=== PATIENT | female | born 1940 | race Caucasian/White ===

== ENCOUNTER 2017-07-20 16:12 | Inpatient (IN) | payer OTHER ==
[~2017-07-20] VITALS: Ht 157.5 cm; Wt 46.5 kg
--- NOTE | ~2017-07-20 | EKG ---
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 : 1940 Requested By: Julio César Fitzgerald Order Number: [id number] MD: Jalen Benton Measurements Intervals [place] Rate: 82 P: 70 UT: 160 QRS: 61 QRSD: 85 T: 50 QT: 360 QTc: 421 Interpretive Statements Sinus rhythm Nonspecific ST segment abnormality Compared to ECG 07/30/2012 16:33:06 No significant change was found Electronically Signed On 07-21-2017 7:46:20 CDT by Jalen Benton [email or web address] <ELECTRONICALLY SIGNED> By: Jalen Benton MD, [facility] 07/21/17 0746 D: 03/1616 16 Jalen Benton MD, FACC /EPI
--- NOTE | ~2017-07-20 | HC ---
[facility] [place] [address] CONSULTATION Name: BETO BLACK Room #: 202-P [facility] IN M.R.#: [id number] Admission: 07/20/17 Attend Phys: Danilo Ramos MD Discharge: Date of : 42 Report #: [id number] THIS REPORT FOR: //name// CC: Luis M Ramos DATE OF SERVICE: 07/21/2017 HISTORY OF PRESENT ILLNESS: The patient is a 76-year-old white female who I was asked to see in the hospital today after she complained of chest pain. No old records are available. 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 She actually jeanette her own troponin that was elevated. She was admitted to [facility] and seen by Dr. Harrington. Dr. Arriaza then placed a single 2.5 x 20 mm long drug-eluting stent in her LAD. She has done well since that time. She states she actually had a repeat heart catheterization about 5 years ago here at [facility] and told there was no significant restenosis of the stent. She has done well since that time and does work out at the gym on an occasional basis. She notes for the past 2 days, she has had soreness over the left side of her chest. It is not related to activity or meals. It would tend to come and go. There was some radiation to her left shoulder and arm. She denied any shortness of breath, diaphoresis or nausea. She denied any trauma to the chest. The pain was not related to food. She has had no fever, cough or bleeding. She denied any rash. Yesterday, it persisted most of the day. She finally came to the emergency room last night and was admitted. I was asked to see her for further evaluation and treatment. She denied any leg pain. PAST MEDICAL HISTORY: Significant for previous thyroidectomy, cataract extraction, hypertension, and hyperlipidemia. MEDICATIONS: Consist of benazepril, carvedilol, atorvastatin, Synthroid, Prilosec, and aspirin. ALLERGIES: She has no known drug allergies. FAMILY HISTORY: Her father had heart disease. SOCIAL HISTORY: She is . She and her live in [place], [place]. 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 She quit smoking 10 years ago, used to smoke a pack of cigarettes a day. She does have one drink of alcohol a day. REVIEW OF SYSTEMS: She has had no history of a stroke or asthma. She has had previous EGD showing evidence of GERD. No history of liver disease. She has had a kidney stone in the past. No cancer. No psychiatric illness. No chronic [facility] [address] [place] [address] CONSULTATION Name: BETO BLACK Room #: 202-P [facility] IN M.R.#: [id number] Admission: 07/20/17 Attend Phys: Danilo Ramos MD Discharge: Date of : 42 Report #: [id number] skin condition. PHYSICAL EXAMINATION: GENERAL: Revealed an elderly female, lying in bed. She appeared in no distress. VITAL SIGNS: Show blood pressure 140/80, pulse 70. She is afebrile. HEENT: She was anicteric, conjunctivae pink. Mucous membranes moist. NECK: Veins do not appear distended. No carotid bruits. Neck was supple. CHEST: Clear to auscultation. HEART: Regular rate and rhythm. No significant murmur. ABDOMEN: Soft, nontender. EXTREMITIES: Had no edema. Posterior tibial pulses 2+ bilaterally. SKIN: Warm and dry. NEUROLOGIC: Nonfocal. LYMPH: No adenopathy. MUSCULOSKELETAL: No joint effusion. Her ECG on admission yesterday showed a sinus rhythm. There was no ST or T-wave change noted. Her workup in the emergency room last night, she had a portable chest x-ray that showed normal heart size and clear lung menjivar. Her lab work last night, she had sodium 138, potassium is 4.4, BUN is 27, creatinine is 1.4, her glucose is 104. Her troponins all 0.04. Cholesterol 224, triglyceride 115, HDL of 141, LDL 37. White blood cell count 6.4, hemoglobin 11.9. TSH was 9. IMPRESSION AND RECOMMENDATIONS: 1. Chest pain. Atypical for angina. However, in light of her history of coronary artery disease, recommend a nuclear stress test since the patient is on a beta flaca. 2. Hypertension. The patient has been on an RICARDO and a beta flaca. 3. Hyperlipidemia. The patient is on a statin drug. 4. Previous thyroidectomy. I would increase the dose of her Synthroid to maintain a normal TSH. 5. History of gastroesophageal reflux disease. 6. Chronic kidney disease. <ELECTRONICALLY SIGNED> By: Krzysztof Easley MD, FACC 07/21/17 1734 0815 [address] Krzysztof Easley MD, FACC /nt
--- NOTE | ~2017-07-20 | 2DMMODE ---
[facility] [address] [place] [address] 2 D/M-MODE ECHOCARDIOGRAM Name: SOFIABETOALICE ALCARAZ Room #: 202-P ADM IN .R.#: [id number] Admission: 07/20/17 Attend Phys: Danilo Ramos MD Discharge: Date of : 42 Date of Service: 07/21/17 [facility] Report #: [id number] THIS REPORT FOR: //name// APPROVED REPORT Study performed: 07/21/2017 09:31:22 EXAM: Comprehensive 2D, Doppler, and color-flow Echocardiogram Patient Location: Bedside Room #: 202 Status: routine BSA: 1.44 HR: 60 bpm BP: 91/57 mmHg Rhythm: NSR Other Information Study Quality: Good/low parasternal window. Indications Chest Pain Hx: CAD, stent 2D Dimensions RVDd: 28.74 mm LVEF(%): 62.91 (>50%) IVSd: 8.95 (7-11mm) LVOT Diam: 19.67 (18-24mm) LVDd: 43.85 mm PWd: 7.43 (7-11mm) LVDs: 29.02 (25-40mm) Aortic Root: 29.78 mm Pineda's LVEF: 62.91 % Volumes Left Atrial Volume (Systole) Single Plane 4CH: 35.57 mL Single Plane 2CH: 45.40 mL LA ESV Index: 30.00 mL/m2 Aortic Valve AoV Peak Chato.: 1.55 m/s AO Peak Gr.: 9.59 mmHg LVOT Max P.19 mmHg LVOT Max V: 1.24 m/s DANAE Vmax: 2.44 cm2 Mitral Valve E/A Ratio: 0.[address] [facility] [place] [address] 2 D/M-MODE ECHOCARDIOGRAM Name: BETO BLACK Room #: 202-P [facility] IN .R.#: [id number] Admission: 07/20/17 Attend Phys: Danilo Ramos MD Discharge: Date of : 42 Date of Service: 07/21/17 [facility] Report #: [id number] MV Decel. Time: 168.56 ms MV E Max Chato.: 0.77 m/s MV A Chato.: 0.97 m/s MV PHT: 48.88 ms IVRT: 115.34 ms Pulmonary Valve PV Peak Chato.: 0.80 m/s PV Peak Gr.: 2.54 mmHg Pulmonary Vein P Vein S: 0.37 m/s P Vein A: 0.29 m/s P Vein D: 0.32 m/s P Vein A Dur.: 106.1 msec P Vein S/D Ratio: 1.16 Tricuspid Valve TR Peak Chato.: 2.37 m/s RAP Estimate: 5.00 mmHg TR Peak Gr.: 22.40 mmHg PA Pressure: 27.00 mmHg Left Ventricle The left ventricle is normal size. There is normal LV segmental wall motion. There is normal left ventricular wall thickness. Left ventricular systolic function is normal. LVEF is 55-60%. Mild diastolic dysfunction is present (impaired relaxation pattern). Right Ventricle The right ventricle is normal size. The right ventricular systolic function is normal. Atria Left atrium is mildly dilated. The right atrium size is normal. Aortic Valve The Aortic valve is mildly sclerotic. No aortic regurgitation is present. There is no aortic valvular stenosis. Mitral Valve The mitral valve is normal in structure. Trace mitral regurgitation. Tricuspid Valve The tricuspid valve is normal in structure. Mild tricuspid regurgitation. Estimated PAP is 25-30mmHg. [address] [address] 2 D/M-MODE ECHOCARDIOGRAM Name: BETO BLACK Room #: 202-P [facility] IN .R.#: [id number] Admission: 07/20/17 Attend Phys: Danilo Ramos MD Discharge: Date of : 42 Date of Service: 07/21/17 [facility] Report #: [id number] Pulmonic Valve Pulmonic valve is not well visualized. There is no pulmonic valvular regurgitation noted. Great Vessels The aortic root is normal in size. Ascending aorta is not well visualized. IVC is normal in size and collapses >50% with inspiration. Pericardium There is no pericardial effusion. <Conclusion> Left atrium is mildly dilated. LVEF is 55-60%. <ELECTRONICALLY SIGNED> By: Krzysztof Easley MD, FACC 07/21/17 1038 1038 1038 Krzysztof Easley MD, FACC /INF
[~2017-07-20 16:12] MED LIST: ASPIRIN EC81 M1 PO; BENAZEPRIL HCL20 MG PO; CLONIDINE0.1; CRESTOR PO; CRESTOR20 MG PO; HYDROCHLOROTHIA25 M1; LEVOTHYROXINE0.05 MG PO; LOPRESSOR25 PO; METOPROLOL SUCC25 M1 PO; NITROGLYCERIN0.4 MG SUBLING; PRILOSEC 20 MG20 MG PO; PRILOSEC40 MG PO
[2017-07-20 16:16] VITALS: BP 164/90
[2017-07-20 16:34] LABS: ABSOLUTE NEUTROPHILS 5.2 thou/uL (1.4-8.2); BASOPHILS 0.9 % (0.0-2.0); EOSINOPHILS 1.1 % (0.0-3.0); HEMATOCRIT 38.4 % (37.0-47.0); HEMOGLOBIN 13.2 gm/dL (12.0-15.0); LYMPHOCYTES 24.8 % (24.0-44.0); MCH 33.5 pg (26.0-34.0); MCHC 34.5 g/dL (28.0-37.0); MCV 97.3 fL (80.0-100.0); PLATELET COUNT 259 thou/uL (150-400); POLYS 64.2 % (36.0-66.0); RBC 3.94 mil/uL (4.20-5.00); RDW 13.7 % (10.5-14.5); WBC 8.1 thou/uL (4.0-11.0)
[2017-07-20 16:41] LABS: ANION GAP 9 mmol/L (7-16); BUN 26 mg/dL (7-18); CALCIUM 9.6 mg/dL (8.5-10.1); CHLORIDE 100 mmol/L (98-107); CO2 24 mmol/L (21-32); GLUCOSE 147 mg/dL (74-106); SODIUM 133 mmol/L (136-145)
[2017-07-20 16:52] LABS: TROPONIN-I < 0.04 ng/mL (<0.06)
[2017-07-20] MEDS ORDERED: SYNTHROID75 MCG PO (16:54)
[2017-07-20] MEDS ORDERED: CARVEDILOL12.5 MG PO (16:54)
[2017-07-20] MEDS ORDERED: CRESTOR20 MG PO (16:54)
[2017-07-20] MEDS ORDERED: BENAZEPRIL HCL20 MG PO (16:54)
[2017-07-20] MEDS ORDERED: OMEPRAZOLE 20 M20 M1 PO (16:55)
[2017-07-20 17:28] VITALS: BP 148/82
[2017-07-20 18:30] VITALS: BP 130/85
[2017-07-20 18:40] VITALS: BP 179/100
[2017-07-20 18:57] VITALS: BP 179/100
[2017-07-21] VITALS: BP 106/65
[2017-07-21 04:39] VITALS: BP 93/54
[2017-07-21 05:32] LABS: ANION GAP 11 mmol/L (7-16); BUN 27 mg/dL (7-18); CALCIUM 9.8 mg/dL (8.5-10.1); CHLORIDE 103 mmol/L (98-107); CHOLESTEROL 224 mg/dL (<200); CO2 24 mmol/L (21-32); CREATININE 1.4 mg/dL (0.6-1.0); GLUCOSE 104 mg/dL (74-106); LDL CHOLESTEROL 37 mg/dL (<100); POTASSIUM 4.4 mmol/L (3.5-5.1); SODIUM 138 mmol/L (136-145); TC:HDL 1.4 Ratio (Not establshd); TRIGLYCERIDE 115 mg/dL (<150); VLDL 23 mg/dL (<40)
[2017-07-21 05:44] LABS: SERUM ASSESSMENT Clear
[2017-07-21 05:47] LABS: HEMOGLOBIN 11.9 gm/dL (12.0-15.0); MCH 32.5 pg (26.0-34.0); MCHC 33.2 g/dL (28.0-37.0); MCV 97.7 fL (80.0-100.0); RBC 3.68 mil/uL (4.20-5.00); RDW 14.2 % (10.5-14.5); WBC 6.4 thou/uL (4.0-11.0)
[2017-07-21 07:11] VITALS: BP 91/57
[2017-07-21 08:41] LABS: HDL CHOLESTEROL 161 mg/dL (>40)
[2017-07-21 15:42] VITALS: BP 109/74
[2017-07-21] MEDS ORDERED: PANTOPRAZOLE SO40 M1 PO (17:42)
[2017-07-21 17:46] VITALS: BP 109/74
== END 2017-07-21 17:58 | disposition home or self-care (01) | DRG 313 ==
LOC: ER 16:12 → 2N 17:19 → EROBS 17:19 → 2N 18:30
PROVIDERS: Hospitalist; Physician Assistant
PROC: B24BZZ4 Ultrasonography of Heart with Aorta, Transesophageal (ICD-10-PCS; principal; 2017-07-21)
DX: R07.89 Other chest pain (principal); E78.5 Hyperlipidemia, unspecified; E89.0 Postprocedural hypothyroidism; I25.10 Atherosclerotic heart disease of native coronary artery without angina pectoris; K21.9 Gastro-esophageal reflux disease without esophagitis; I12.9 Hypertensive chronic kidney disease with stage 1 through stage 4 chronic kidney disease, or unspecified chronic kidney disease; N18.9 Chronic kidney disease, unspecified; I25.2 Old myocardial infarction; Z95.5 Presence of coronary angioplasty implant and graft; Z87.891 Personal history of nicotine dependence; Z79.82 Long term (current) use of aspirin; Z79.899 Other long term (current) drug therapy; Z82.49 Family history of ischemic heart disease and other diseases of the circulatory system
CPT/HCPCS: 10194

== ENCOUNTER 2017-10-28 13:26 | Emergency (ER) | payer OTHER ==
[~2017-10-28] VITALS: Ht 157.5 cm; Wt 43.1 kg
--- NOTE | ~2017-10-28 | EKG ---
[place] [address] [facility] [address] [place] [address] ELECTROCARDIOGRAM REPORT Name: SOFIABETO ALCARAZ 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
[~2017-10-28 13:26] MED LIST changes: +CARVEDILOL12.5 MG PO; +OMEPRAZOLE 20 M20 M1 PO; +PANTOPRAZOLE SO40 M1 PO; +SYNTHROID75 MCG PO
[2017-10-28 14:44] LABS: ABSOLUTE NEUTROPHILS 8.9 thou/uL (1.4-8.2); BASOPHILS 0.3 % (0.0-2.0); EOSINOPHILS 0.1 % (0.0-3.0); HEMATOCRIT 33.8 % (37.0-47.0); HEMOGLOBIN 11.6 gm/dL (12.0-15.0); LYMPHOCYTES 6.6 % (24.0-44.0); MCH 32.6 pg (26.0-34.0); MCHC 34.4 g/dL (28.0-37.0); MCV 94.8 fL (80.0-100.0); MONOCYTES 1.2 % (1.0-8.0); PLATELET COUNT 222 thou/uL (150-400); POLYS 91.8 % (36.0-66.0); RBC 3.57 mil/uL (4.20-5.00); RDW 13.2 % (10.5-14.5); WBC 9.7 thou/uL (4.0-11.0)
[2017-10-28 14:53] LABS: CALCIUM 8.9 mg/dL (8.5-10.1); CREATININE 1.2 mg/dL (0.6-1.0); POTASSIUM 4.4 mmol/L (3.5-5.1)
[2017-10-28 15:00] LABS: ALBUMIN 3.7 g/dL (3.4-5.0); DIRECT BILIRUBIN 0.2 mg/dL (<0.1-0.3); TOTAL BILIRUBIN 0.4 mg/dL (<0.1-1.0); TOTAL PROTEIN 7.1 g/dL (6.4-8.2)
[2017-10-28 15:40] LABS: MAGNESIUM 1.7 mg/dL (1.8-2.4); TROPONIN-I <0.06 ng/mL (<0.06)
[2017-10-28 16:23] LABS: URINE BILIRUBIN NEGATIVE (Negative); URINE BLOOD NEGATIVE (Negative); URINE CLARITY CLEAR; URINE COLOR YELLOW; URINE GLUCOSE-RANDOM* NEGATIVE (Negative); URINE KETONES 1+ (Negative); URINE LEUKOCYTES NEGATIVE (Negative); URINE NITRITE NEGATIVE (Negative); URINE PROTEIN (DIPSTICK) 1+ (Negative); URINE SPECIFIC GRAVITY 1.025 (1.005-1.035); URINE UROBILINOGEN 0.2 E.U./dl (0.2-1.0)
[2017-10-28 16:32] LABS: BACTERIA 1-9 Few /HPF (None Seen); CASTS None Seen /LPF (None Seen); CRYSTALS None Seen /LPF (None Seen); SQUAMOUS 4-10 Moderate /LPF (0-3); URINE RBC None Seen /HPF (0-2); URINE WBC 0-5 Rare /HPF (0-5)
== END 2017-10-28 18:19 | disposition home or self-care (01) ==
LOC: ER 13:26
PROVIDERS: Emergency Medicine; Nurse Practitioner Family
DX: E16.2 Hypoglycemia, unspecified (principal); R19.7 Diarrhea, unspecified; E86.0 Dehydration; I10 Essential (primary) hypertension; E78.5 Hyperlipidemia, unspecified; I25.2 Old myocardial infarction; E89.0 Postprocedural hypothyroidism

== ENCOUNTER 2020-02-02 17:32 | Emergency (ER) | payer OTHER ==
[~2020-02-02] VITALS: Ht 157.5 cm; Wt 45.8 kg
[2020-02-02 20:03] LABS: URINE BILIRUBIN NEGATIVE (Negative); URINE BLOOD NEGATIVE (Negative); URINE CLARITY CLEAR; URINE COLOR YELLOW; URINE GLUCOSE-RANDOM* NEGATIVE (Negative); URINE KETONES NEGATIVE (Negative); URINE LEUKOCYTES-REFLEX TRACE (Negative); URINE NITRITE-REFLEX NEGATIVE (Negative); URINE PROTEIN (DIPSTICK) TRACE (Negative); URINE UROBILINOGEN 0.2 E.U./dl (0.2-1.0)
[2020-02-02 20:30] LABS: ANION GAP 12 mmol/L (7-16); BUN 22 mg/dL (7-18); CALCIUM 9.4 mg/dL (8.5-10.1); CHLORIDE 98 mmol/L (98-107); CO2 23 mmol/L (21-32); CREATININE 1.2 mg/dL (0.6-1.0); GLUCOSE 145 mg/dL (74-106); POTASSIUM 3.9 mmol/L (3.5-5.1); SODIUM 133 mmol/L (136-145)
[2020-02-02 20:31] LABS: ABSOLUTE NEUTROPHILS 4.4 thou/uL (1.4-8.2); BASOPHILS 0.9 % (0.0-2.0); HEMATOCRIT 34.5 % (37.0-47.0); HEMOGLOBIN 11.4 gm/dL (12.0-15.0); LYMPHOCYTES 19.2 % (24.0-44.0); MCH 32.2 pg (26.0-34.0); MCHC 33.1 g/dL (28.0-37.0); MCV 97.2 fL (80.0-100.0); PLATELET COUNT 321 thou/uL (150-400); POLYS 68.9 % (36.0-66.0); RBC 3.55 mil/uL (4.20-5.00); RDW 14.3 % (10.5-14.5); WBC 6.4 thou/uL (4.0-11.0)
[2020-02-02 20:39] LABS: TROPONIN-I <0.06 ng/mL (<0.06)
[2020-02-02 21:27] VITALS: BP 174/104
--- NOTE | 2020-02-03 07:39 | EKG ---
[facility] [place] [address] ELECTROCARDIOGRAM REPORT Name: BETO BLACK Room #: DEP [facility]#: [id number] Admission: 02/02/20 Attend Phys: Discharge: 02/02/20 Date of : 42 Report #: [id number] THIS REPORT FOR: cc: Luis M Jackson MD, Michael B. 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: [facility] : 1940 Requested By: Steve Stewart Order Number: [id number] MD: Jalen Benton Measurements Intervals [place] Rate: 67 P: 40 UT: 159 QRS: 62 QRSD: 92 T: 56 QT: 418 QTc: 442 Interpretive Statements Sinus rhythm Normal tracing Compared to ECG 10/28/2017 13:34:25 QT prolongation is no longer present Electronically Signed On 02-03-2020 7:39:33 CDT by Jalen Benton [email or web address] <ELECTRONICALLY SIGNED> By: Jalen Benton MD, FACC 02/03/20 0739 14 14 Jalen Benton MD, [facility] /EPI
== END 2020-02-02 21:27 | disposition home or self-care (01) ==
LOC: ER 17:32
PROVIDERS: Emergency Medicine
DX: R42 Dizziness and giddiness (principal); I10 Essential (primary) hypertension; E78.5 Hyperlipidemia, unspecified; Z95.5 Presence of coronary angioplasty implant and graft; E89.0 Postprocedural hypothyroidism